=== PATIENT | female | born 2000 | race Caucasian/White ===

== ENCOUNTER 2020-01-18 16:03 | Emergency (ER) | payer OTHER ==
[~2020-01-18] VITALS: Ht 160 cm; Wt 54.5 kg
[2020-01-18 16:06] VITALS: BP 131/92
--- NOTE | 2020-01-18 19:18 | NUR ---
ASSSUMED PT FROM DAY SHIFT AWAITING DISCHARGE PT CONTENT FREE OF PAIN NO CHANGES TO PREVIOUS ASSESSMENT.
== END 2020-01-18 19:13 | disposition home or self-care (01) ==
LOC: ER 16:04
DX: S90.01XA Contusion of right ankle, initial encounter (principal); I10 Essential (primary) hypertension; X58.XXXA Exposure to other specified factors, initial encounter; Y93.89 Activity, other specified; Y92.89 Other specified places as the place of occurrence of the external cause; Y99.8 Other external cause status
CPT/HCPCS: 73600; 99283